=== PATIENT | female | born 1980 ===

== ENCOUNTER 2020-05-17 09:09 | Inpatient (IN) ==
[~2020-05-17 09:09] MED LIST: Buffered Lidocaine 1% SYRIN 1 ml INTRADERM ONE; Sodium Citrate/Citric Acid LIQ 15 ML UDC PO ONE
[2020-05-17] MEDS: Lactated Ringers 1000 ml BAG 1,000 ML IV SCH ×3 (10:12→17:50)
[2020-05-17] MEDS ORDERED: ceFOXitin 2 GM IVPREMIX 2 GM/50 ML BAG ONE (10:26)
[2020-05-17] MEDS ORDERED: Bupivacaine 0.5% SDV PF 30ML VIAL ONE (11:01)
[2020-05-17] MEDS ORDERED: Oxytocin 10 UNITS/ML 1 ML VIAL ONE (11:01)
[2020-05-17] MEDS ORDERED: Morphine PF AMP (0.5MG/ML) 5 MG/10 ML AMP ONE (11:01)
[2020-05-17] MEDS ORDERED: Phenylephrine 40 mcg/mL 10mL (400mcg) SYRINGE ONE (11:25)
[2020-05-17] MEDS ORDERED: EPHEDrine (Pressors) 50 MG/ML VIAL ONE (11:36)
[2020-05-17] MEDS ORDERED: fentaNYL 100 mcg/2 ml 50 MCG/ML VIAL IV PRN (11:54)
[2020-05-17] MEDS ORDERED: Naloxone 0.4 mg VIAL 0.4 mg/ml 1 ml VIAL IV PRN ×2 (11:54→11:57)
[2020-05-17] MEDS ORDERED: HYDROcodone/ACETAMIN 5/325 mg TAB PO PRN (11:57)
[2020-05-17] MEDS ORDERED: DiMENhydriNATE IV 50 mg/ml 1 ml VIAL IV PUSH PRN (11:57)
[2020-05-17] MEDS ORDERED: Ondansetron 4 mg VIAL 2 MG/ML 2 ml VIAL IV PRN (11:57)
[2020-05-17] MEDS ORDERED: diPHENhydraMINE IV 50 MG/ML 1 ml VIAL (BENADRYL) IV PRN (11:57)
[2020-05-17] MEDS ORDERED: Dibucaine 1% OINT 28.35 GM TUBE PR PRN (14:21)
[2020-05-17] MEDS ORDERED: Measles, Mumps,Rubella VACC 0.5 ML/VIAL SUBCUT ONE (14:21)
[2020-05-17] MEDS ORDERED: Glycerin ADULT 2.4 gm SUPP PR PRN (14:21)
[2020-05-17] MEDS ORDERED: RHO D Immune Globulin (HUMAN) 300 MCG = 1,500 I.U. INJ IM ONE (14:21)
[2020-05-17] MEDS ORDERED: Witch Hazel PAD JAR TOPICAL PRN (14:21)
[2020-05-17] MEDS ORDERED: Lactated Ringers 1000 ml BAG 1,000 ML IV SCH (15:00)
[2020-05-17] MEDS ORDERED: Oxytocin in LR 20 UNITS/1,000 ML BAG IVPB SCH (15:00)
[2020-05-18 06:59] LABS: ABS Eosinophils 0.1 10^3/ul (0-0.6); ABS Lymphocytes 1.3 10^3/ul (1.0-4.8); ABS Monocytes 0.8 10^3/ul (0-0.8); ABS Neutrophils 8.9 10^3/ul (1.5-7.7); Eosinophil % 0.7 %; Hematocrit 30 % (35-47); Hemoglobin 10.4 g/dL (12.0-16.0); Lymphocyte % 11.9 %; Mean Corpuscular HGB Conc 34 g/dL (31-36); Mean Corpuscular Hemoglobin 29 pg (27-31); Mean Corpuscular Volume 84 fL (80-97); Mean Platelet Volume 8.3 fL (7.4-10.4); Nucleated Red Blood Cells % 0.1; Platelet Count 170 10^3/uL (150-450); Red Blood Count 3.58 10^6 /uL (3.70-4.87); Red Cell Distribution Width 14 % (10-15); White Blood Count 11.1 10^3/uL (3.5-10.8)
[2020-05-19 10:07] VITALS: BP 129/79
[2020-05-20] MEDS ORDERED: Scopolamine PATCH Remove NOTE PATCH OFF ONE (11:55)
== END 2020-05-19 11:47 | disposition home or self-care (01) | DRG 540 ==
LOC: MCHOB 09:09
PROVIDERS: ADMIT Obstetrics & Gynecology; ATTEND Obstetrics & Gynecology